=== PATIENT | male | born 1950 | race Caucasian/White ===

== ENCOUNTER 2021-01-05 22:37 | Emergency (ER) | payer MEDICARE, SELFPAY ==
[2021-01-05 22:39] VITALS: BP 142/81; PULSE 81; RESP 15; TEMP 36.6; O2SAT 94; BMI 41.0
[2021-01-05] MEDS: Mixture 30 ML Bottle 15 ML TOPICAL (22:54)
[2021-01-05 23:29] VITALS: BP 167/87; PULSE 79; RESP 18; O2SAT 92
--- NOTE | 2021-01-06 00:11 | EDS_ITS ---
HPI History of Present Illness Chief Complaint: Nosebleed Informant: patient Onset/Context/Timing Onset: Today and Hours (6) Timing: Continuous Quality: Brisk red blood Location: Left nares Worsened by: Nothing Relieved by: Nothing Narrative Narrative: Patient presents with epistaxis that began today. Patient states it is been constant for the past 6 hours. Patient states nothing seems to help. Patient states nothing makes it worse. Patient denies any trauma or injury. Patient denies taking any blood thinners. Patient states it is bleeding from just the left nares. Patient states that he does feel some of the bleeding go down the back of his throat as well. Patient denies any fevers or chills. PFSH PFSH Medical History Coronary artery disease Diabetes Dialysis patient Hypertension Kidney stones Non-smoker Smoker Home Medications Valsartan/Hydrochlorothiazide [Diovan Hct 320-25 Mg Tablet] 1 tab PO DAILY 05/22/15 [History Last Taken 05/22/15] amlodipine 10 mg PO DAILY 05/22/15 [History Last Taken 05/22/15] aspirin 81 mg PO DAILY@0800 05/22/15 [History Last Taken 05/22/15] atorvastatin 20 mg PO DAILY 05/22/15 [History Last Taken Unknown] glimepiride 2 mg PO DAILY 05/22/15 [History Last Taken 05/22/15] metformin 1,000 mg PO DAILY 05/22/15 [History Last Taken Unknown] metoprolol tartrate 100 mg PO BID 05/22/15 [History Last Taken 05/22/15] pioglitazone 30 mg PO DAILY 05/22/15 [History Last Taken 05/22/15] Potassium Chloride [Klor-Con M20] 20 meq PO DAILY 11/12/16 [History Last Taken Unknown] Allergy/AdvReac Type Severity Reaction Status Date / Time Iodinated Contrast Media AdvReac Vomiting Verified 01/05/21 22:38 [Iodinated Contrast Media - IV Dye] Surgical History (Updated 01/06/21 @ 00:[address] Jerson Jackson DO) History of eye surgery History of foot surgery History of herniorrhaphy Hx of CABG Social History (Updated 01/06/21 @ 00:[address] Jerson Jackson DO) Smoking Status: Never smoker alcohol intake: current alcohol intake frequency: a few times a month ROS ROS ED Constitutional Constitutional ED: Denies chills or fever(s) Eyes Eyes: Denies blurry vision or change in vision ENT ENT ED: Denies rhinorrhea or sore throat Cardiovascular Cardiovascular: Denies chest pain or palpitations Respiratory/Chest Respiratory/Chest: Reports cough; Denies dyspnea Gastrointestinal Gastrointestinal: Denies nausea or vomiting Genitourinary Genitourinary ED: Denies dysuria or hematuria Musculoskeletal Musculoskeletal: Denies back pain or neck pain Integumentary Denies abscess or rash Neurologic Neurologic: Denies headache(s) or weakness Allergic/Immunologic Allergic/Immunologic ED: Denies mouth swelling or urticaria EXAM Physical Exam Const Vital Signs: 01/05/21 22:39 01/05/21 23:29 Temperature 97.9 F Temperature Source Temporal Pulse Rate 81 79 Respiratory Rate 15 18 Blood Pressure 142/81 H 167/87 H Blood Pressure Mean 101 113 Pulse Ox 94 92 Oxygen Delivery Method Room Air Room Air Positive well nourished and well developed General Appearance ED: well developed HEENT HEENT Narrative: There is some bleeding noted from the left nares. It appears to be coming from the anterior nasal septum. There is no bleeding from the right nares there is some dried blood in the oropharynx. Oropharynx is otherwise clear. Neck supple and no JVD Resp normal respiratory effort and clear to auscultation bilaterally Cardio regular rate and regular rhythm GI normal to inspection, nondistended, normoactive bowel sounds and non-tender Palpation: soft Neuro oriented x3, CN's II-XII intact bilaterally and no sensory deficits noted Sensorium / Orientation: alert Motor Exam: strength 5/5 throughout Psych mental status grossly normal MDM MDM MDM Narrative Medical decision making narrative: Vicky solution was applied to cotton balls and were then placed in the left nares. Bleeding slowed down. The anterior nasal septum showed some mild bleeding. There is no septal hematoma or septal deviation. In the anterior rapid Rhino packing was applied to the left nares. There is no further bleeding noted. Patient tolerated the procedure well. P atient will be discharged home. Patient was instructed to follow-up with his primary care physician in 2 days for removal of the packing. Patient understood and was agreeable with the plan. All questions were answered. Discharge Plan Triage Chief Complaint: Nosebleed ED Provider: Jerson Jackson Dx/Rx/DC Orders Clinical Impression: Left-sided epistaxis Instructions: ED Epistaxis (Adult) Prescriptions: No Action metoprolol tartrate 100 MG tablet 100 mg PO BID RF: 0 glimepiride 2 MG tablet 2 mg PO DAILY RF: 0 amlodipine 10 MG tablet 10 mg PO DAILY RF: 0 aspirin 81 MG tablet,chewable 81 mg PO DAILY@0800 RF: 0 pioglitazone 30 MG tablet 30 mg PO DAILY RF: 0 Valsartan/Hydrochlorothiazide [Diovan Hct 320-25 Mg Tablet] 1 TABLET tablet 1 tab PO DAILY RF: 0 metformin 500 MG tablet 1,000 mg PO DAILY RF: 0 atorvastatin 20 MG tablet 20 mg PO DAILY RF: 0 Potassium Chloride [Klor-Con M20] 20 MEQ Tab.Er.Prt 20 meq PO DAILY RF: 0 Primary Care Provider: Louis Borja Referrals: Louis Borja MD [Primary Care Provider] - 2 Days Disposition Disposition: Home, self care
[2021-01-06 00:26] VITALS: BP 177/93; PULSE 62; RESP 16; TEMP 36.7; O2SAT 97
== END 2021-01-06 00:29 | disposition home or self-care (01) ==
PROVIDERS: Emergency Provider Emergency Medicine; PCP Family Medicine
DX: R04.0 Epistaxis (principal); I25.10 Atherosclerotic heart disease of native coronary artery without angina pectoris; E11.9 Type 2 diabetes mellitus without complications; I10 Essential (primary) hypertension; Z79.82 Long term (current) use of aspirin; Z79.84 Long term (current) use of oral hypoglycemic drugs; Z87.442 Personal history of urinary calculi; Z99.2 Dependence on renal dialysis; Z79.899 Other long term (current) drug therapy; Z95.1 Presence of aortocoronary bypass graft
CPT/HCPCS: 30901; 99282

== ENCOUNTER 2021-01-07 09:42 | Emergency (ER) | payer MEDICARE, SELFPAY ==
[2021-01-07 09:44] VITALS: BP 125/86; PULSE 94; RESP 16; TEMP 36.2; O2SAT 93; BMI 41.0
--- NOTE | 2021-01-07 10:02 | EX.ED.DYSGE1 ---
HPI History of Present Illness Chief Complaint: Foreign Body Informant: patient Narrative Narrative: Patient is here for nose packing removal. He had it placed over the weekend. He try to go to his PCP office but they would not take it out. He denies being on any blood thinning medications. He denies swallowing any blood. He states that he is not having any significant pain in the nose. PFSH PFSH Medical History Coronary artery disease Diabetes Dialysis patient Hypertension Kidney stones Non-smoker Smoker Home Medications Valsartan/Hydrochlorothiazide [Diovan Hct 320-25 Mg Tablet] 1 tab PO DAILY 05/22/15 [History Last Taken 05/22/15] amlodipine 10 mg PO DAILY 05/22/15 [History Last Taken 05/22/15] aspirin 81 mg PO DAILY@0800 05/22/15 [History Last Taken 05/22/15] atorvastatin 20 mg PO DAILY 05/22/15 [History Last Taken Unknown] glimepiride 2 mg PO DAILY 05/22/15 [History Last Taken 05/22/15] metformin 1,000 mg PO DAILY 05/22/15 [History Last Taken Unknown] metoprolol tartrate 100 mg PO BID 05/22/15 [History Last Taken 05/22/15] pioglitazone 30 mg PO DAILY 05/22/15 [History Last Taken 05/22/15] Potassium Chloride [Klor-Con M20] 20 meq PO DAILY 11/12/16 [History Last Taken Unknown] Allergy/AdvReac Type Severity Reaction Status Date / Time Iodinated Contrast Media AdvReac Vomiting Verified 01/07/21 09:43 [Iodinated Contrast Media - IV Dye] Surgical History History of eye surgery History of foot surgery History of herniorrhaphy Hx of CABG Social History Smoking Status: Never smoker alcohol intake: current alcohol intake frequency: a few times a month ROS ROS ED Constitutional Constitutional ED: Denies chills or fever(s) Eyes Eyes: Denies blurry vision, change in vision, diplopia or loss of vision ENT ENT ED: Reports other Details: Epistaxis with packing Cardiovascular Cardiovascular: Denies chest pain, palpitations or racing heartbeat Respiratory/Chest Respiratory/Chest: Denies cough, dyspnea, dyspnea on exertion or sputum Gastrointestinal Gastrointestinal: Denies abdominal pain, diarrhea, nausea or vomiting Genitourinary Genitourinary ED: Denies dysuria, hematuria or urinary frequency Musculoskeletal Musculoskeletal: Denies back pain, myalgias or neck pain Integumentary Denies abscess or rash Neurologic Neurologic: Denies headache(s) or weakness Psychiatric Psychiatric: Denies anxiety or depression Endocrine Endocrinology: Denies polydipsia or polyuria Hematologic/Lymphatic Hematologic/Lymphatic: Denies easy bleeding or easy bruising Allergic/Immunologic Allergic/Immunologic ED: Denies urticaria EXAM Physical Exam Const Vital Signs: 01/07/21 09:44 01/07/21 09:50 Temperature 97.1 F L Temperature Source Temporal Pulse Rate 94 Respiratory Rate 16 Respiratory Effort Normal Non-Labored Respiratory Pattern Normal Blood Pressure 125/86 H Blood Pressure Mean 99 Pulse Ox 93 Oxygen Delivery Method Room Air Positive well nourished and well developed General Appearance ED: well developed HEENT Reports moist mucous membranes HEENT Narrative: Packing noted in left nares. No bleeding around the packing. Posterior oropharynx shows no blood, fresh or dried Negative for trauma or tenderness Neck supple Neuro oriented x3 and CN's II-XII intact bilaterally Sensorium / Orientation: alert Motor Exam: strength 5/5 throughout Psych mental status grossly normal MDM MDM MDM Narrative Medical decision making narrative: The patient's packing was removed by myself. There is no bleeding noted. His oropharynx is still clear of any blood. He will be observed here for a few minutes to make sure no bleeding starts and he will be discharged to follow-up as needed Discharge Plan Triage Chief Complaint: Foreign Body ED Provider: Otto Child Dx/Rx/DC Orders Clinical Impression: Encounter for removal of nasal packing Instructions: ED Epistaxis (Adult) Prescriptions: No Action metoprolol tartrate 100 MG tablet 100 mg PO BID RF: 0 glimepiride 2 MG tablet 2 mg PO DAILY RF: 0 amlodipine 10 MG tablet 10 mg PO DAILY RF: 0 aspirin 81 MG tablet,chewable 81 mg PO DAILY@0800 RF: 0 pioglitazone 30 MG tablet 30 mg PO DAILY RF: 0 Valsartan/Hydrochlorothiazide [Diovan Hct 320-25 Mg Tablet] 1 TABLET tablet 1 tab PO DAILY RF: 0 metformin 500 MG tablet 1,000 mg PO DAILY RF: 0 atorvastatin 20 MG tablet 20 mg PO DAILY RF: 0 Potassium Chloride [Klor-Con M20] 20 MEQ Tab.Er.Prt 20 meq PO DAILY RF: 0 Primary Care Provider: Louis Borja Referrals: Louis Borja MD [Primary Care Provider] - Disposition Disposition: Home, self care
== END 2021-01-07 10:21 | disposition home or self-care (01) ==
LOC: ED 10:19
PROVIDERS: Emergency Provider Emergency Medicine; PCP Family Medicine
DX: Z48.00 Encounter for change or removal of nonsurgical wound dressing (principal); I25.10 Atherosclerotic heart disease of native coronary artery without angina pectoris; I10 Essential (primary) hypertension; E11.9 Type 2 diabetes mellitus without complications; Z87.442 Personal history of urinary calculi; Z99.2 Dependence on renal dialysis; Z79.82 Long term (current) use of aspirin; Z79.84 Long term (current) use of oral hypoglycemic drugs
CPT/HCPCS: 99281; 99282

== ENCOUNTER 2024-10-15 16:42 | Emergency (ER) | payer MEDICARE, SELFPAY ==
[2024-10-15 16:44] VITALS: BP 145/89; PULSE 84; RESP 16; TEMP 36.4; O2SAT 92; BMI 46.5
--- NOTE | 2024-10-15 17:45 | CT_ITS ---
PROCEDURE: ABDOMEN/PELVIS W IV CONT ONLY REASON FOR EXAM: Abdominal pain TECHNIQUE: Abdomen and pelvis CT with intravenous contrast. Multiplanar reconstructions performed. COMPARISON: None. FINDINGS: Lower chest: There is a nodule in the right lower lobe measuring 5.9 mm on image 8 of series 2. A nodule in the left lower lobe on image 15 of series 2 measures 5.5 mm. Mild bibasilar atelectasis or scarring is present. The heart is enlarged with advanced coronary artery calcifications and postoperative changes. Liver: Unremarkable. Biliary/gallbladder: Unremarkable. Pancreas: Unremarkable. Spleen: Unremarkable. Adrenal glands: A subcentimeter fat containing nodule in the left adrenal gland most likely represents an adrenal myelolipoma. Kidneys: There are a few cysts in the right kidney measuring up to 5.7 cm. No renal calculus or hydronephrosis is identified. Gastrointestinal/peritoneum: No acute abnormality.The appendix is unremarkable.No free air or free fluid. Vascular: There are moderate scattered atherosclerotic calcifications. Lymph nodes: No enlarged lymph nodes by CT size criteria. Pelvic organs: Unremarkable. Bladder: Unremarkable. Bones: Median sternotomy wires are present. 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 A chronic vertebral compression fracture is present at L4. There is a vertebral hemangioma at L2. Soft tissues: Unremarkable. CT/Abdomen/Pelvis W IV Cont ONLY IMPRESSION: 1. No acute abnormality of the abdomen and pelvis. 2. A few right-sided renal cysts measuring up to 5.7 cm. 3. Chronic vertebral compression fracture at L4. 4. A couple of sub 6 mm pulmonary nodules are noted in the lung bases. [facility] ed CT of the chest can be considered electively if the patient has increased pulmonary risk factors. [facility]
--- NOTE | 2024-10-15 17:50 | ED.VIS.GI ---
HPI HPI - GI History of Present Illness Chief Complaint: GI Bleed PFSH PFSH Medical History Coronary artery disease Diabetes Dialysis patient Hypertension Kidney stones Non-smoker Smoker Home Medications ?Medication ?Instructions ?Recorded ?Last Taken ?Type Valsartan/Hydrochlorothiazide 1 tab PO DAILY 05/22/15 05/22/15 History [Diovan Hct 320-25 Mg Tablet] amlodipine 10 mg tablet 10 mg PO DAILY 05/22/15 05/22/15 History aspirin 81 mg chewable tablet 81 mg PO DAILY@0800 05/22/15 05/22/15 History atorvastatin 20 mg tablet 20 mg PO DAILY 05/22/15 Unknown History glimepiride 2 mg tablet 2 mg PO DAILY 05/22/15 05/22/15 History metformin 500 mg tablet 1,000 mg PO DAILY 05/22/15 Unknown History metoprolol tartrate 100 mg tablet 100 mg PO BID 05/22/15 05/22/15 History pioglitazone 30 mg tablet 30 mg PO DAILY 05/22/15 05/22/15 History Potassium Chloride [Klor-Con M20] 20 meq PO DAILY 11/12/16 Unknown History Allergy/AdvReac Type Severity Reaction Status Date / Time Iodinated Contrast Media AdvReac Vomiting Verified 10/15/24 16:45 (Iodinated Contrast Media - IV Dye) Surgical History History of eye surgery History of foot surgery History of herniorrhaphy Hx of CABG Social History Smoking Status: Never smoker alcohol intake: current alcohol intake frequency: a few times a month EXAM Physical Exam Const Vital Signs: 10/15/24 16:44 Temperature 97.6 F L Temperature Source Temporal Pulse Rate 84 Respiratory Rate 16 Blood Pressure 145/89 H Blood Pressure Mean 107 Pulse Ox 92 Oxygen Delivery Method Room Air MDM MDM MDM Narrative Medical decision making narrative: I have personally performed a face to face assessment of the patient and have reviewed the HAYLEY Note. I performed a substantive portion of the visit including all aspects of the following. My pereira findings include: History is [patient presents to the emergency department with rectal bleeding that started yesterday. States he had an episode yesterday with some clots. This morning he had a bowel movement that was dark and was worried that there would be blood in it. Then had another bowel movement today that was bright red. He tells me he had a colonoscopy that needed special instrumentation at [facility] 5 days ago. He had had a colonoscopy in February that removed some polyps but there was a polyp in the crevice they had a hard time removing so he had to have the special colonoscopy. He describes some mild abdominal discomfort. He denies feeling lightheaded or dizzy. He is not anticoagulated. He normally takes aspirin but has not for the last week.] Exam is [HEENT-PERRLA, EOMI. Cranial nerves II through XII grossly intact. TMs clear. Mucous membranes moist. No adenopathy. Cardiovascular-regular rate and rhythm without murmur or ectopy Lungs-clear to auscultation, chest wall stable without crepitus or subcu emphysema Abdomen-normoactive bowel sounds, soft. Mild diffuse tenderness. There is no rebound, rigidity, or peritoneal signs. No mass palpated Extremities-intact ?4, normal range of motion, normal pulses, atraumatic] Medical Decison Making [ ] Other additions or changes: [None] Discharge Plan Triage Chief Complaint: GI Bleed ED Midlevel Provider: Francisco Parks ED Provider: Andrey Osuna Dx/Rx/DC Orders Prescriptions: No Action metoprolol tartrate 100 MG tablet 100 mg PO BID Patient Comments: BLOOD PRESSURE/HEART glimepiride 2 MG tablet 2 mg PO DAILY Patient Comments: DIABETES amlodipine 10 MG tablet 10 mg PO DAILY Patient Comments: BLOOD PRESSURE aspirin 81 MG tablet,chewable 81 mg PO DAILY@0800 Patient Comments: HEART/stroke prevention pioglitazone 30 MG tablet 30 mg PO DAILY Patient Comments: DIABETES Valsartan/Hydrochlorothiazide [Diovan Hct 320-25 Mg Tablet] 1 TABLET tablet 1 tab PO DAILY Patient Comments: BLOOD PRESSURE metformin 500 MG tablet 1,000 mg PO DAILY Patient Comments: diabetes atorvastatin 20 MG tablet 20 mg PO DAILY Patient Comments: lowers cholesterol Potassium Chloride [Klor-Con M20] 20 MEQ Tab.Er.Prt 20 meq PO DAILY Patient Comments: Primary Care Provider: Louis Borja Referrals: Louis Borja MD [Primary Care Provider] - Print Language: Kazakh
[2024-10-15 18:19] LABS: Absolute Lymphocyte Count 1.66 X10^3/uL (0.83-4.51); Absolute Neutrophil Count 4.5 X10^3/uL (2.0-7.7); Basophil# 0.02 X10^3/uL; Basophil% 0.3 % (0-1); Eosinophil# 0.06 X10^3/uL; Eosinophils% 0.9 % (0-5); Hematocrit 49.4 % (40-54); Hemoglobin 16.7 g/dL (13.0-16.5); Lymphocyte # 1.66 X10^3/ul (0.83-4.51); Lymphocyte % 24.4 % (19-41); Mean Corp Hgb Conc 33.8 g/dL (32-36); Mean Corpuscular Hgb 29.5 pg (27.0-32.0); Mean Corpuscular Volume 87.1 fL (80-94); Mean Platelet Vol. 10.8 fl (6.2-12.0); Monocyte# 0.57 X10^3/uL; Monocyte% 8.4 % (0-10); NRBC Flagged by Analyzer 0 % (0-5); Neutrophil # 4.47 X10^3/uL (2.7-7.7); Neutrophil % 65.7 % (47-70); Platelet Count 192 K/mm3 (150-450); RBC Distribution Width CV 14.4 % (11.6-14.6); RBC Distribution Width SD 45.9 fl (35.1-43.9); Red Blood Count 5.67 M/mm3 (4.6-6.2); White Blood Count 6.8 K/mm3 (4.4-11.0)
[2024-10-15] MEDS: Ondansetron 4 MG/2 ML Vial IV (18:32)
[2024-10-15 18:43] VITALS: PULSE 67; RESP 12; O2SAT 95
[2024-10-15 18:50] LABS: ALB/GLOB Ratio 0.8 RATIO (0.9-2.4); AST(SGOT) 15 U/L (15-37); Alanine Aminotransfer ALT/SGPT 24 U/L (16-61); Albumin, Serum 2.8 g/dL (3.2-5.0); Alkaline Phosphatase 81 U/L (45-117); Anion Gap 8 (5-15); BUN 27 mg/dL (7-18); Chloride 102 mmol/L (98-107); Creatinine, Serum 0.77 mg/dL (0.70-1.30); EST Glomerular Filtration Rate 104 mL/min (>60); Est Glom Filt Rate - Afr Amer 126 mL/min (>60); Estimated Creatinine Clearance 110.64 ml/min; Globulin 3.7 g/dL (2.2-4.2); Glucose 111 mg/dL (74-106); Lactic Acid 1.7 mmol/L (0.4-1.9); Potassium 3.1 mmol/L (3.5-5.1); Protein, Total 6.5 g/dL (6.4-8.2); Sodium Level 141 mmol/L (136-145)
[2024-10-15 19:12] LABS: Bacteria 0 SEEN /hpf (None Seen); Mucous, Urine 0 SEEN /hpf (<or=2+); Squamous Epithelial Cells - UA 0 SEEN /hpf (0-5)
[2024-10-15 19:26] LABS: Color, Urine Yellow (Yellow); Glucose, Dipstick Normal (Normal); Ketone-Dipstick Negative (Negative); Leukocyte Esterase-Dipstick Negative /ul (Negative); Nitrite-Dipstick Negative (Negative); Occult Blood-Urine Negative /ul (Negative); Protein-Dipstick 100 mg/dl (Negative); Specific Gravity, Urine 1.015 (1.002-1.030); Urine Bilirubin Dipstick Negative (Negative); Urine Clarity Clear (Clear); Urine Urobilinogen 1 mg/dl (Normal)
[2024-10-15 19:35] LABS: Red Blood Cells-Urine 0 SEEN /hpf (0-5); White Blood Cells 0-5 SEEN /hpf (0-5)
[2024-10-15 20:14] VITALS: RESP 18; O2SAT 98
--- NOTE | 2024-10-15 20:21 | EX.ED.DYSGE1 ---
HPI <MARY KAY Pelletier - Last Filed: 10/15/24 20:28> History of Present Illness Chief Complaint: GI Bleed Narrative Narrative: Patient is a 73-year-old male with history of hypertension hyperlipidemia, diabetes CAD who presents to the emergency department for lower abdominal pain, 2 episodes of blood in the stool. Patient did have a colonoscopy 5 days ago, with a removed a large polyp. Patient states he was doing well, the last 24 hours, has had 2 bloody bowel movements, as well as some belly cramping. Here for evaluation. [facility] <MARY KAY Pelletier - Last Filed: 10/15/24 20:28> [facility] Medical History (Updated 10/15/24 @ 20:28 by MARY KAY Pelletier) Myocardial infarct (~04/12/10) Diabetes Kidney stones Smoker Non-smoker Coronary artery disease Hypertension Home Medications ?Medication ?Instructions ?Recorded ?Last Taken ?Type Valsartan/Hydrochlorothiazide 1 tab PO DAILY 05/22/15 05/22/15 History [Diovan Hct 320-25 Mg Tablet] amlodipine 10 mg tablet 10 mg PO DAILY 05/22/15 05/22/15 History aspirin 81 mg chewable tablet 81 mg PO DAILY@0800 05/22/15 05/22/15 History atorvastatin 20 mg tablet 20 mg PO DAILY 05/22/15 Unknown History glimepiride 2 mg tablet 2 mg PO DAILY 05/22/15 05/22/15 History metformin 500 mg tablet 1,000 mg PO DAILY 05/22/15 Unknown History metoprolol tartrate 100 mg tablet 100 mg PO BID 05/22/15 05/22/15 History pioglitazone 30 mg tablet 30 mg PO DAILY 05/22/15 05/22/15 History Potassium Chloride [Klor-Con M20] 20 meq PO DAILY 11/12/16 Unknown History Allergy/AdvReac Type Severity Reaction Status Date / Time Iodinated Contrast Media AdvReac Vomiting Verified 10/15/24 16:45 (Iodinated Contrast Media - IV Dye) Surgical History History of eye surgery History of foot surgery History of herniorrhaphy Hx of CABG Social History Smoking Status: Never smoker alcohol intake: current alcohol intake frequency: a few times a month ROS <MARY KAY Pelletier - Last Filed: 10/15/24 20:28> ROS ED ROS Narrative Constitutional: Negative for fever, chills, weight loss, weakness Eyes: Negative for vision loss, vision change, double vision ENT: Negative for any sore throat, ear pain, congestion Cardiovascular: Negative for any chest pain, tightness, palpitations Respiratory: Negative for any cough, sputum production, hemoptysis, dyspnea, dyspnea on exertion, orthopnea Gastrointestinal: Negative for any nausea, vomiting, diarrhea, constipation, blood in vomit. Positive abdominal pain, blood in stool : Negative for any urinary frequency, dysuria, retention, blood in urine Muscle skeletal: Negative for any neck pain, back pain Neurological: Negative for any headache, syncope, dizziness Skin: Negative for any rashes, itching, abrasions, lacerations Psychiatric: Negative for any depression, anxiety, stress, suicidal ideation, homicidal ideation Hematologic: Negative for any excessive bruising, easy bleeding EXAM <MARY KAY Pelletier - Last Filed: 10/15/24 20:28> Physical Exam Narrative Exam Narrative: Vital signs reviewed. HEET: Head normocephalic atraumatic, TMs clear bilaterally. Posterior pharynx is clear, moist mucous membranes. Nares clear bilaterally. Neck: Supple with no lymphadenopathy or tenderness. No signs of meningismus. Cardiac: Regular rate and rhythm no murmurs gallops or rubs, equal peripheral pulses bilaterally. Respiratory: Lungs clear to auscultation bilaterally. No chest tenderness. Abdomen: Soft, nontender, nondistended. No abdominal bruit or pulsatile masses. No hepatosplenomegaly Extremities: No peripheral edema, no signs of gross trauma or deformity. Active full range of motion of all extremities. Neuro: Cranial nerves II through XII intact, no focal neurological deficits. Skin: Clean dry and intact with no rash, purpura, petechiae, vesicles or pustules. Backs/flank: No CVA tenderness, no midline spinal tenderness, no deformity. Psych: Normal mood and affect. No SI, HI or acute psychosis. Const Vital Signs: 10/15/24 16:44 10/15/24 18:43 10/15/24 20:14 Temperature 97.6 F L Temperature Source Temporal Pulse Rate 84 67 Respiratory Rate 16 12 18 Blood Pressure 145/89 H Blood Pressure Mean 107 Pulse Ox 92 95 98 Oxygen Delivery Method Room Air Room Air Room Air <Dr. Andrey Osuna DO - Last Filed: 10/15/24 20:33> Physical Exam Const Vital Signs: 10/15/24 16:44 10/15/24 18:43 10/15/24 20:14 Temperature 97.6 F L Temperature Source Temporal Pulse Rate 84 67 Respiratory Rate 16 12 18 Blood Pressure 145/89 H Blood Pressure Mean 107 Pulse Ox 92 95 98 Oxygen Delivery Method Room Air Room Air Room Air MDM <MARY KAY Pelletier - Last Filed: 10/15/24 20:28> [facility] Lab Data Labs: Laboratory Results - last 24 hr 10/15/24 10/15/24 18:05 19:08 WBC 6.8 RBC 5.67 Hgb 16.7 H Hct 49.4 MCV 87.1 MCH 29.5 MCHC 33.8 RDW Std Deviation 45.9 H RDW Coeff of Tyler 14.4 Plt Count 192 MPV 10.8 Immature Gran % (Auto) 0.300 Neut % (Auto) 65.7 Lymph % (Auto) 24.4 [place] % (Auto) 8.4 Eos % (Auto) 0.9 Baso % (Auto) 0.3 Absolute Neuts (auto) 4.5 Absolute Lymphs (auto) 1.66 Nucleated RBC % 0 Sodium 141 Potassium 3.1 L Chloride 102 Carbon Dioxide 31.0 Anion Gap 8 BUN 27 H Creatinine 0.77 Estim Creat Clear Calc 110.64 Est GFR (MDRD) Af Amer 126 Est GFR (MDRD) Non-Af 104 BUN/Creatinine Ratio 35.0 H Glucose 111 H Lactic Acid 1.7 Calcium 9.0 Total Bilirubin 0.60 AST 15 ALT 24 Alkaline Phosphatase 81 Total Protein 6.5 Albumin 2.8 L Globulin 3.7 Albumin/Globulin Ratio 0.8 L Urine Color Yellow Urine Clarity Clear Urine pH 6.0 Ur Specific Stendal 1.015 Urine Protein 100 H Urine Glucose (UA) Normal Urine Ketones Negative Urine Occult Blood Negative Urine Nitrite Negative Urine Bilirubin Negative Urine Urobilinogen 1 H Ur Leukocyte Esterase Negative Urine RBC 0 SEEN Urine WBC 0-5 SEEN Ur Squamous Epith Cells 0 SEEN Urine Bacteria 0 SEEN Urine Mucus 0 SEEN Blood Type O POSITIVE Antibody Screen NEGATIVE Radiography Diagnostic Testing: Clinical Impression(s) from Imaging Studies Abdomen/Pelvis CT 10/15/24 17:45 IMPRESSION: 1. No acute abnormality of the abdomen and pelvis. 2. A few right-sided renal cysts measuring up to 5.7 cm. 3. Chronic vertebral compression fracture at L4. 4. A couple of sub 6 mm pulmonary nodules are noted in the lung bases. Dedicated CT of the chest can be considered electively if the patient has increased pulmonary risk factors. Reading Location: [facility] Treatment and Re-Evaluation :: Differential diagnosis includes however is not limited to: Acute GI hemorrhage, post polyp bleeding, hemorrhoid, anemia, diverticulitis, colitis Patient appears generally well, vital signs are stable, patient is nontoxic-appearing. Presenting to the emergency department for abdominal cramping, blood in stool x 2 after a colonoscopy 5 days ago. Patient did receive a CT scan, this shows no acute abnormality of the abdomen or pelvis. Patient's laboratory values show a normal CBC, patient's hemoglobin was 16.7, chemistries were unremarkable. BUN was 27 which is within normal limits. Patient's stool occult here was negative, I do believe this was positive. Urinalysis was negative for any infection. Secondary to the patient having a recent colonoscopy, I did reach out to colorectal surgery to [facility]. At this time, they are happy with the place to be discharged home, they will follow-up outpatient. Patient is also happy with the plan of care. Orthostatic vital signs were obtained and normal. At this time, patient was given strict return precaution, all questions answered, stable for discharge. <Dr. Andrey Osuna, DO - Last Filed: 10/15/24 20:33> [facility] Narrative Medical decision making narrative: I have personally performed a face to face assessment of the patient and have reviewed the HAYLEY Note. I performed a substantive portion of the visit including all aspects of the following. My pereira findings include: History is [patient presents to the emergency department with rectal bleeding. Patient had colonoscopy to remove the polyp removed 5 days ago. This was his second colonoscopy as he had had 1 in February but had a polyp that was not easily accessible at that time and was referred to [facility] to have some special instrumentation to remove the polyp. Yesterday started having blood from his rectum. Patient passed some clots yesterday. Today he had a dark stool but did not think it was bloody and then had another stool that he thought was bloody. Denies feeling lightheaded or dizzy. He describes minimal abdominal cramping. He has had no vomiting. No hematemesis] Exam is [HEENT-PERRLA, EOMI. Cranial nerves II through XII grossly intact. TMs clear. Mucous membranes moist. No adenopathy. Cardiovascular-regular rate and rhythm without murmur or ectopy Lungs-clear to auscultation, chest wall stable without crepitus or subcu emphysema Abdomen-normoactive bowel sounds, soft. Minimal diffuse tenderness. There is no rebound, rigidity, or peritoneal signs. No mass palpated Extremities-intact ?4, normal range of motion, normal pulses, atraumatic] Medical Decison Making [patient presents with rectal bleeding after polyp being resected 5 days ago. Clinically looks well. IV line established. CBC with differential obtained showed white count 6.8 with hemoglobin 16.7 and platelet count of 192. Chemistries unremarkable. BUN was 27 and creatinine 0.77. LFTs were normal. Urinalysis normal. Orthostatic vital signs obtained were unremarkable. CT scan of the abdomen pelvis with IV contrast obtained showed no acute abnormalities. This was to rule out postprocedure bowel perforation or other acute pathology. Physician entry level assistant manager discussed case with GI on-call [facility]. They are comfortable with patient following up with them as an outpatient. Patient will be advised to return if persistent bleeding, lightheadedness, worsening pain, or condition should worsen anyway.] Other additions or changes: [None] Lab Data Attestation: I reviewed the patient's lab results. Labs: Laboratory Results - last 24 hr 10/15/24 10/15/24 18:05 19:08 WBC 6.8 RBC 5.67 Hgb 16.7 H Hct 49.4 MCV 87.1 MCH 29.5 MCHC 33.8 RDW Std Deviation 45.9 H RDW Coeff of Tyler 14.4 Plt Count 192 MPV 10.8 Immature Gran % (Auto) 0.300 Neut % (Auto) 65.7 Lymph % (Auto) 24.4 [place] % (Auto) 8.4 Eos % (Auto) 0.9 Baso % (Auto) 0.3 Absolute Neuts (auto) 4.5 Absolute Lymphs (auto) 1.66 Nucleated RBC % 0 Sodium 141 Potassium 3.1 L Chloride 102 Carbon Dioxide 31.0 Anion Gap 8 BUN 27 H Creatinine 0.77 Estim Creat Clear Calc 110.64 Est GFR (MDRD) Af Amer 126 Est GFR (MDRD) Non-Af 104 BUN/Creatinine Ratio 35.0 H Glucose 111 H Lactic Acid 1.7 Calcium 9.0 Total Bilirubin 0.60 AST 15 ALT 24 Alkaline Phosphatase 81 Total Protein 6.5 Albumin 2.8 L Globulin 3.7 Albumin/Globulin Ratio 0.8 L Urine Color Yellow Urine Clarity Clear Urine pH 6.0 Ur Specific Stendal 1.015 Urine Protein 100 H Urine Glucose (UA) Normal Urine Ketones Negative Urine Occult Blood Negative Urine Nitrite Negative Urine Bilirubin Negative Urine Urobilinogen 1 H Ur Leukocyte Esterase Negative Urine RBC 0 SEEN Urine WBC 0-5 SEEN Ur Squamous Epith Cells 0 SEEN Urine Bacteria 0 SEEN Urine Mucus 0 SEEN Blood Type O POSITIVE Antibody Screen NEGATIVE Radiography Diagnostic Testing: Clinical Impression(s) from Imaging Studies Abdomen/Pelvis CT 10/15/24 17:45 IMPRESSION: 1. No acute abnormality of the abdomen and pelvis. 2. A few right-sided renal cysts measuring up to 5.7 cm. 3. Chronic vertebral compression fracture at L4. 4. A couple of sub 6 mm pulmonary nodules are noted in the lung bases. Dedicated CT of the chest can be considered electively if the patient has increased pulmonary risk factors. Reading Location: [facility] Discharge Plan Triage Chief Complaint: GI Bleed ED Midlevel Provider: Francisco Parks ED Provider: Andrey Osuna Dx/Rx/DC Orders Clinical Impression: Blood in stool, Abdominal cramping Instructions: GI Bleeding Causes and Tests, ED Muscle Spasm Prescriptions: No Action metoprolol tartrate 100 MG tablet 100 mg PO BID Patient Comments: BLOOD PRESSURE/HEART glimepiride 2 MG tablet 2 mg PO DAILY Patient Comments: DIABETES amlodipine 10 MG tablet 10 mg PO DAILY Patient Comments: BLOOD PRESSURE aspirin 81 MG tablet,chewable 81 mg PO DAILY@0800 Patient Comments: HEART/stroke prevention pioglitazone 30 MG tablet 30 mg PO DAILY Patient Comments: DIABETES Valsartan/Hydrochlorothiazide [Diovan Hct 320-25 Mg Tablet] 1 TABLET tablet 1 tab PO DAILY Patient Comments: BLOOD PRESSURE metformin 500 MG tablet 1,000 mg PO DAILY Patient Comments: diabetes atorvastatin 20 MG tablet 20 mg PO DAILY Patient Comments: lowers cholesterol Potassium Chloride [Klor-Con M20] 20 MEQ Tab.Er.Prt 20 meq PO DAILY Patient Comments: Primary Care Provider: Louis Borja Referrals: Louis Borja MD [Primary Care Provider] - Activity Restrictions/Additional Instructions: Ensure that you follow-up with the [facility]. Return for any worsening symptoms. Print Language: Citizen Of [place] Disposition Disposition: Home, Self Care
[2024-10-15 20:35] VITALS: BP 123/75; BP 124/76; BP 125/70; PULSE 57; PULSE 60; PULSE 63
[2024-10-15 20:50] VITALS: BP 136/71; PULSE 87; RESP 18; O2SAT 92
== END 2024-10-15 20:51 | disposition home or self-care (01) ==
PROVIDERS: Nurse Practitioner; Emergency Provider Emergency Medicine; PCP Family Medicine; Visit Provider Emergency Medicine
DX: K92.1 Melena (principal); E11.9 Type 2 diabetes mellitus without complications; R10.30 Lower abdominal pain, unspecified; I25.10 Atherosclerotic heart disease of native coronary artery without angina pectoris; I10 Essential (primary) hypertension; E78.5 Hyperlipidemia, unspecified; Z79.82 Long term (current) use of aspirin; Z79.84 Long term (current) use of oral hypoglycemic drugs; Z79.899 Other long term (current) drug therapy; I25.2 Old myocardial infarction; Z98.890 Other specified postprocedural states
CPT/HCPCS: 74177; 80053; 81001; 82274; 83605; 85025; 86850; 86900; 86901; 96374; 99284; Q9967; A4216; J2405

== ENCOUNTER 2024-12-12 11:45 | Emergency (ER) | payer MEDICARE, SELFPAY ==
[2024-12-12 11:46] VITALS: BP 180/80; PULSE 66; RESP 18; TEMP 36.6; O2SAT 93; BMI 44.4
--- NOTE | 2024-12-12 13:25 | VDLE_ITS ---
Reason For Study Reason For Study: RLE Swelling RIGHT LEFT GSV is normal. FV is compressible, spontaneous, phasic, competent CFV is compressible, spontaneous, phasic, competent and demonstrates normal augmentation. and demonstrates normal augmentation. FV is compressible, spontaneous, phasic, competent and demonstrates normal augmentation. POP V is compressible, spontaneous, phasic, competent and demonstrates normal augmentation. T/P Trunk is compressible. PTV is compressible. RT PerV is compressible. Unable to visualize distal calf veins due to wound. Procedure This is a venous duplex using B-mode, color flow and spectral Doppler. Exam performed portable in ED. The exam was diagnostic. A preliminary report was called and/or faxed to [facility]. VL/Venous Duplex US, Unilateral Interpretation Summary Deep veins of the right lower extremity are patent and compressible segmentally . There is no evidence of right lower extremity deep vein thrombosis. The right great saphenous vein appears patent a nd compressible segmentally. Ordering Physician: Michael Juarez Referring Physician: MD Huong Louis Performed By: Husam Bowie RVT
--- NOTE | 2024-12-12 13:28 | EDS_ITS ---
HPI History of Present Illness Chief Complaint: Wound Informant: patient Narrative Narrative: 74-year-old type II diabetic states he has chronic edema in both of his legs, and he drove to and from [place], leaving his home about 2 weeks ago, stating when he got there he had developed a big blister on his distal right lower leg above the ankle. It grew over the next week, and when he got back, he decided to rupture it and got a lot of clear fluid out of it. For the past week since that, he has been developing more and more pain and redness. Denies any fevers or systemic symptoms, is just concerned about his right leg which she agrees is more swollen than the left as well. He is on no anticoagulants, just baby aspirin. No history of DVT or PE. [facility] Medical History Myocardial infarct (~04/12/10) Diabetes Kidney stones Smoker Non-smoker Coronary artery disease Hypertension Home Medications ?Medication ?Instructions ?Recorded ?Last Taken ?Type Valsartan/Hydrochlorothiazide 1 tab PO DAILY 05/22/15 05/22/15 History [Diovan Hct 320-25 Mg Tablet] amlodipine 10 mg tablet 10 mg PO DAILY 05/22/1505/02 History aspirin 81 mg chewable tablet 81 mg PO DAILY@0800 05/0205/22/15 History atorvastatin 20 mg tablet 20 mg PO DAILY 05/22/15 Unkn own History glimepiride 2 mg tablet 2 mg PO DAILY 05/22/1505/22 History metformin 500 mg tablet 1,000 mg PO DAILY 05/22/15 U nknown History metoprolol tartrate 100 mg tablet 100 mg PO BID 05/22/15 History pioglitazone 30 mg tablet 30 mg PO DAILY 05/22/1505/02 History Potassium Chloride [Klor-Con M20] 20 meq PO DAILY 10/29 01/14 Unknown History cephalexin 500 mg capsule 500 mg PO Q6 #40 CAPSULES Unknown Rx mupirocin 2 % topical ointment 1 applic topical BID NM N skin 12/12/24 Unknown Rx infection #15 grams Allergy/AdvReac Type Severity Reaction Status Date / Time Iodinated Contrast Media AdvReac Vomiting Verified 10/15/24 16:45 (Iodinated Contrast Media - IV Dye) Surgical History History of eye surgery History of foot surgery History of herniorrhaphy Hx of CABG Social History Smoking Status: Never smoker alcohol intake: current alcohol intake frequency: a few times a month ROS ROS ED Constitutional Constitutional ED: Denies chills or fever(s) Eyes Eyes: Denies change in vision or diplopia ENT ENT ED: Denies rhinorrhea or sore throat Cardiovascular Cardiovascular: Reports leg edema; Denies chest pain or palpitations Respiratory/Chest Respiratory/Chest: Denies cough or dyspnea Gastrointestinal Gastrointestinal: Denies abdominal pain, diarrhea, nausea or vomiting Genitourinary Genitourinary ED: Denies dysuria or hematuria Musculoskeletal Musculoskeletal: Reports extremity pain; Denies neck pain Integumentary Reports rash and wounds; Denies Abrasions Neurologic Neurologic: Denies paresthesias or weakness Psychiatric Psychiatric: Denies anxiety or suicidal thoughts EXAM Physical Exam Const Vital Signs: 12/12/24 11:46 12/12/24 13:46 12/12/24 15:00 Temperature 98 F Temperature Source Oral Pulse Rate 66 60 60 Respiratory Rate 18 19 H 16 Blood Pressure 180/80 H 140/68 H 142/79 H Blood Pressure Mean 113 92 100 Pulse Ox 93 87 97 Oxygen Delivery Method Room Air Room Air Room Air Positive well nourished and well developed General Appearance ED: well developed and NAD HEENT Reports moist mucous membranes normocephalic and atraumatic Eyes PERRL and EOMs intact bilaterally Neck full ROM and supple Resp normal respiratory effort and clear to auscultation bilaterally Cardio regular rate, regular rhythm and no murmurs GI non-tender and non-distended Auscultation: normoactive bowel sounds Palpation: soft Back/Spine normal ROM and normal to inspection General Back: other FROM Extremity Extremity Narrative: There is a large superficial wound on the distal right vict[place], just proximal to the ankle, there is granulation tissue present, there is a lot of seeping of clear fluid and there are couple of small bullae still present but the one that is ruptured having exposed the wound beneath was approximately 10 cm across. Entire area is tender and has some surrounding erythema. He is tender all the way up to the calf and lower leg waving on the erythema. There is no palpable cords or lymphangitis. The thigh and knee are nontender. He can move the ankle and knee without any difficulty. All compartments are soft and nondistended. There is no abscess or purulent discharge. There are some changes of chronic stasis dermatitis just above the left ankle suggesting chronic edema that the patient admits to having in both legs. General Extremety ED: Yes edema and tenderness; Negative for pulses abnormal General Extremity: edema bilateral lower extremity (Asymmetric, worse on the right where wound is present) Details: moderate; Negative for pulses abnormal Neuro oriented x3, no focal motor deficits and no sensory deficits noted Sensorium / Orientation: alert Motor Exam: strength 5/5 throughout Psych mental status grossly normal and thought process normal Skin Skin Narrative: Single large wound distal right lower leg with some surrounding erythema just around the wound and not extending elsewhere see above MDM MDM MDM Narrative Medical decision making narrative: This appears to be a blister that occurred due to edema followed by a secondary infection once the patient unroofed the blister artificially. His leg is more edematous than the contralateral leg, so I obtained a venous eval given his recent long travel in a car to rule out DVT, the ultrasound is negative. He was empirically given a dose of vancomycin, and I obtain labs which are normal, arguing against sepsis/systemic involvement, and the patient has no symptoms of that so that is reassuring. I offered admission he prefers to go home if possible which I think is reasonable and put him on outpatient antibiotics. I am concerned about this wound not sure if it needs debrided or not, so I tried to get him into the wound center as a new patient quickly, however apparently according to his insurance is going to be a $325 co-pay for each encounter, the patient adamantly refuses to be evaluated at the wound center because he does not want to pay this and states he pays for both primary and secondary insurance. Secondarily I attempted to have the wound nurse evaluate him, but she was not present in the hospital today at all. Given this at this time I feel the best move would be to provide nonstick dressing supplies and oral antibiotics and topical mupirocin, and advise close outpatient follow-up with his doctor since he does not want to stay. Lab Data Attestation: I reviewed the patient's lab results. Labs: Laboratory Results - last 24 hr 12/12/24 13:50 WBC 8.4 RBC 5.49 Hgb 16.2 Hct 47.8 MCV 87.1 MCH 29.5 MCHC 33.9 RDW Std Deviation 45.8 H RDW Coeff of Tyler 14.5 Plt Count 168 MPV 10.6 Immature Gran % (Auto) 0.400 Neut % (Auto) 72.1 H Lymph % (Auto) 20.5 [place] % (Auto) 6.2 Eos % (Auto) 0.6 Baso % (Auto) 0.2 Absolute Neuts (auto) 6.1 Absolute Lymphs (auto) 1.73 Nucleated RBC % 0 Sodium 141 Potassium 3.7 Chloride 100 Carbon Dioxide 29.6 Anion Gap 11 BUN 19 Creatinine 0.80 Estim Creat Clear Calc 106.15 Est GFR (MDRD) Non-Af 92 BUN/Creatinine Ratio 24.0 H Glucose 99 Calcium 9.1 Discharge Plan Triage Chief Complaint: Wound ED Provider: Michael Juarez Dx/Rx/DC Orders Clinical Impression: Blister of leg, right, infected, Controlled type 2 diabetes mellitus, Bilateral edema of lower extremity Instructions: ED Wound Check (Infection) Prescriptions: New cephalexin 500 mg capsule 500 mg PO Q6 Qty: 40 0RF mupirocin 2 % ointment 1 applic topical BID PRN (Reason: skin infection) Qty: 15 0RF No Action metoprolol tartrate 100 MG tablet 100 mg PO BID Patient Comments: BLOOD PRESSURE/HEART glimepiride 2 MG tablet 2 mg PO DAILY Patient Comments: DIABETES amlodipine 10 MG tablet 10 mg PO DAILY Patient Comments: BLOOD PRESSURE aspirin 81 MG tablet,chewable 81 mg PO DAILY@0800 Patient Comments: HEART/stroke prevention pioglitazone 30 MG tablet 30 mg PO DAILY Patient Comments: DIABETES Valsartan/Hydrochlorothiazide [Diovan Hct 320-25 Mg Tablet] 1 TABLET tablet 1 tab PO DAILY Patient Comments: BLOOD PRESSURE metformin 500 MG tablet 1,000 mg PO DAILY Patient Comments: diabetes atorvastatin 20 MG tablet 20 mg PO DAILY Patient Comments: lowers cholesterol Potassium Chloride [Klor-Con M20] 20 MEQ Tab.Er.Prt 20 meq PO DAILY Patient Comments: Primary Care Provider: Louis Borja Referrals: Louis Borja MD [Primary Care Provider] - As soon as possible Print Language: [place] Disposition Disposition: Home, Self Care
[2024-12-12 13:46] VITALS: BP 140/68; PULSE 60; RESP 19; O2SAT 87
[2024-12-12 14:01] LABS: Absolute Lymphocyte Count 1.73 X10^3/uL (0.83-4.51); Absolute Neutrophil Count 6.1 X10^3/uL (2.0-7.7); Basophil# 0.02 X10^3/uL; Basophil% 0.2 % (0-1); Eosinophil# 0.05 X10^3/uL; Eosinophils% 0.6 % (0-5); Hematocrit 47.8 % (40-54); Hemoglobin 16.2 g/dL (13.0-16.5); Lymphocyte # 1.73 X10^3/ul (0.83-4.51); Lymphocyte % 20.5 % (19-41); Mean Corp Hgb Conc 33.9 g/dL (32-36); Mean Corpuscular Hgb 29.5 pg (27.0-32.0); Mean Corpuscular Volume 87.1 fL (80-94); Mean Platelet Vol. 10.6 fl (6.2-12.0); Monocyte# 0.52 X10^3/uL; Monocyte% 6.2 % (0-10); NRBC Flagged by Analyzer 0 % (0-5); Neutrophil # 6.07 X10^3/uL (2.7-7.7); Neutrophil % 72.1 % (47-70); Platelet Count 168 K/mm3 (150-450); RBC Distribution Width CV 14.5 % (11.6-14.6); RBC Distribution Width SD 45.8 fl (35.1-43.9); Red Blood Count 5.49 M/mm3 (4.6-6.2); White Blood Count 8.4 K/mm3 (4.4-11.0)
[2024-12-12] MEDS: Vancomycin HCl 2,000 MG in 0.9% Normal Saline (500mL Bag) 500 ML 250 MG IV (14:18)
[2024-12-12 14:21] LABS: Anion Gap 11 (5-15); BUN 19 mg/dL (4-19); Calcium,Total 9.1 mg/dL (7.6-11.0); Carbon Dioxide 29.6 mmol/L (21.0-32.0); Chloride 100 mmol/L (98-108); EST Glomerular Filtration Rate 92 (>60); Estimated Creatinine Clearance 106.15 ml/min (50-250); Glucose 99 mg/dL (70-99); Potassium 3.7 mmol/L (3.3-5.1); Sodium Level 141 mmol/L (133-145)
[2024-12-12 15:00] VITALS: BP 142/79; PULSE 60; RESP 16; O2SAT 97
[2024-12-12 17:00] VITALS: BP 118/85; PULSE 84; RESP 18; O2SAT 99
[2024-12-12 17:11] VITALS: BP 118/85; PULSE 84; RESP 18; TEMP 37; O2SAT 99
== END 2024-12-12 17:11 | disposition home or self-care (01) ==
PROVIDERS: Emergency Provider Emergency Medicine; PCP Family Medicine; Visit Provider Emergency Medicine
DX: S80.821A Blister (nonthermal), right lower leg, initial encounter (principal); E11.9 Type 2 diabetes mellitus without complications; L08.9 Local infection of the skin and subcutaneous tissue, unspecified; X58.XXXA Exposure to other specified factors, initial encounter; R60.0 Localized edema; I25.10 Atherosclerotic heart disease of native coronary artery without angina pectoris; I10 Essential (primary) hypertension; Z79.82 Long term (current) use of aspirin; Z79.84 Long term (current) use of oral hypoglycemic drugs; Z79.899 Other long term (current) drug therapy; I25.2 Old myocardial infarction; Z95.1 Presence of aortocoronary bypass graft
CPT/HCPCS: 80048; 85025; 93971; 96365; 96366; 99283; A4216